=== PATIENT | female | born 1980 | race Caucasian/White ===

== ENCOUNTER 2023-07-14 16:57 | Emergency (ER) | payer OTHER, SELFPAY ==
[2023-07-14 17:01] VITALS: BP 157/86; PULSE 86; RESP 20; TEMP 36.5; O2SAT 96; BMI 35.0
--- NOTE | 2023-07-14 17:15 | ED.DENTAL1 ---
HPI - Dental/Oral General Chief complaint: Dental/Oral Stated complaint: TOOTHACHE Time Seen by Provider: 07/14/23 17:13 Source: patient Mode of arrival: walk-in Limitations: no limitations History of Present Illness HPI Narrative: patient is a 43-year-old female presents to the emergency department for a two day history of pain to tooth #15. Patient has generally poor dentition and multiple dental caries. She denies any specific drainage from the tooth, no difficulty swallowing or speaking. She has had no facial swelling, fevers, chills, nausea, vomiting. She is not concerned for . Related Data Previous Rx's Medication Instructions Recorded clindamycin HCl 150 mg capsule 300 mg PO Q6H 10 days #80 caps 07/14/23 ketorolac 10 mg tablet 10 mg PO TID PRN pain #10 tabs 07/14/23 Allergies Allergy/AdvReac Type Severity Reaction Status Date / Time Penicillins Allergy Hives Verified 07/14/23 17:00 Review of Systems ROS Constitutional Denies: fever or chills Ears, nose, mouth, and throat Denies: throat pain or nasal congestion Respiratory Denies: shortness of breath or cough Gastrointestinal Denies: nausea or vomiting Integumentary/Breast Denies: rash Neurological Reports: headache Exam Narrative Exam Narrative: Gen.: Awake, alert, in no distress Head: Normocephalic, atraumatic ENT: Moist mucous membranes; no redness or swelling under the tongue. Clear speech. Multiple dental caries with tooth #15 tender and eroded to the gumline. No visible dental abscess or drainage. No trismus or drooling. airway widely open and patent, uvula midline. No mandibular or maxillary swelling noted. Respiratory: No respiratory distress Extremities: Moves extremities equally Psych: Normal mood and affect Neuro: No focal neuro deficit Skin: Warm, dry, intact Constitutional Vital Signs, click to edit/add: Last Vital Signs Temp 97.7 F 07/14/23 17:01 Pulse 86 07/14/23 17:01 Resp 20 07/14/23 17:01 BP 157/86 H 07/14/23 17:01 Pulse Ox 96 07/14/23 17:01 Course Vital Signs Vital signs: Vital Signs Temperature 97.7 F 07/14/23 17:01 Pulse Rate 86 07/14/23 17:01 Respiratory Rate 20 07/14/23 17:01 Blood Pressure 157/86 H 07/14/23 17:01 Pulse Oximetry 96 07/14/23 17:01 Temperature 97.7 F 07/14/23 17:01 Pulse Rate 86 07/14/23 17:01 Respiratory Rate 20 07/14/23 17:01 Blood Pressure 157/86 H 07/14/23 17:01 Pulse Oximetry 96 07/14/23 17:01 MDM - Dental/Oral MDM Narrative Medical decision making narrative: patient treated with clindamycin as she is ALLERGIC to penicillin. Topical analgesia and NSAIDs provided for home. Follow-up with dentist and return to the Emergency Room if symptoms change or worsen. Medical Records Attestation: I reviewed the patient's medical records. Discharge Plan Discharge Chief Complaint: Dental/Oral Clinical Impression: Dental caries, Toothache Patient Disposition: Home, Self-Care Time of Disposition Decision: 17:13 Condition: Good Prescriptions / Home Meds: New clindamycin HCl 150 mg capsule 300 mg PO Q6H 10 Days Qty: 80 0RF ketorolac 10 mg tablet 10 mg PO TID PRN (Reason: pain) Qty: 10 0RF Instructions: Toothache (ED) Additional Instructions: Follow up with dental Stand Alone Forms: Portal Instructions Referrals: Cesar Gallegos MD [Primary Care Provider] - 1 week
[2023-07-14] MEDS: BENZOCAINE 30 ML, lidocaine HCL 15 ML MM (17:27)
== END 2023-07-14 17:31 | disposition home or self-care (01) ==
PROVIDERS: Emergency Provider Emergency Medicine; PCP Family Medicine
DX: K02.9 Dental caries, unspecified (principal); K08.89 Other specified disorders of teeth and supporting structures
CPT/HCPCS: 99283

== ENCOUNTER 2025-02-06 01:59 | Emergency (ER) | payer OTHER, SELFPAY ==
--- OUTSIDE RECORDS SUMMARY | 2025-02-04 10:45 | XMS_ITS ---
Author Organization [facility] [place] Address [address] [place] [address] Care Team Providers Care Retanner Name Role Phone Thang Gallegos Primary Care Provider [phone] Allergies No Known Allergies REASON FOR VISIT coughing up a lung per , started 2-3 days ago, coughing green up Medications Medication SIG (Take, Route, Frequency, Duration) Notes Start Date End Date Status Amoxicillin-Pot Clavulanate 875-125 MG 1 tablet Orally every 12 hrs for 10 days 02/04/2025 Active predniSONE 20 MG 3 tablets Orally Onc e a day for 5 days 02/04/2025 Active Benzonatate 200 MG 1 capsule Orally Thr ee times a day for 7 days 02/04/2025 Active Social History Tobacco Use: Social History Observation Description Date Details (start date - stop date) Current Smoker NA - NA Tobacco Control (Standard) Question Answer Notes Tobacco use: Current smoker AUDIT-C (Standard) Question Answer Notes Did you have a drink contain ing alcohol in the past year? Yes How often did you have a dri nk containing alcohol in the past year? Monthly or less (1 point) How many drinks did you have on a typical day when you were drinking in the past year? 1 or 2 drinks (0 point) How often did you have six o r more drinks on one occasion in the past year? Never (0 point) Points 1 Interpretation Negative Vital Signs Temperature 99.2 degrees Fahrenheit 02/05/20 25 Blood pressure systolic 124 mm Hg 02/05/20 25 Blood pressure diastolic 82 mm Hg 025 Height 61 in 02/04/2025 Weight 188.0 lbs 02/04/2025 BMI 35.52 kg/m2 02/04/2025 Encounters Encounter Location Date Provider Diagnosis [facility] [address] [place] [address] 02/04/2025 Thang Gallegos Acute bronchitis, unspecified organism J20.9 Assessments Encounter Date Diagnosis (ICD Code) Assessment Notes Treatment Notes Treatment Clinical Notes Section Notes 02/04/2025 Acute bronchitis, unspecified organism (ICD-10 - J20.9) Rest and drink more liquids, especially water. You may use a humidifier or vaporizer to help keep the drainage moist. Ukwi-wqf-owzvrwk Nasal Saline may help the stuffy and runny nose. Use Ibuprofen and or Tylenol as needed for fever, chills, body aches or pain. Children 5 years old should not be given aemo-kig-xgltbya cough and cold medications such as guaifenesin and dextromethorphan. If you're over age 5, you may try nfbe-mjn-qynrkxg cold medications such as guaifenesin and dextromethorphan, or multi-symptom cold reliever such as Dayquil to help reduce the symptoms. Antibiotics have been prescribed. You should take these until completed and follow the directions. Antibiotics can sometimes cause upset stomach, and in rare cases, serious allergic reactions or serious gastrointestinal problems. If you start having severe abdominal pain, severe vomiting, or bloody diarrhea, you should be reevaluated by your physician or urgent care immediately. Follow up with your Primary Care Provider or return to clinic if symptoms do not improve within 3-5 days. If you develop severe symptoms such as shortness of breath, repeated vomiting, coughing up blood, or chest pain you should go to the emergency room or call 911 Plan Of Treatment Medication Medication Name Sig Start Date Stop Date Notes Amoxicillin-Pot Clavulanate 875-125 MG 1 tablet Orally every 12 hrs for 10 days 02/04/2025 predniSONE 20 MG 3 tablets Orally Onc e a day for 5 days 02/04/2025 Benzonatate 200 MG 1 capsule Orally Thr ee times a day for 7 days 02/04/2025 Treatment Notes Assessment Notes Acute bronchitis, unspecified organism R est and drink more liquids, especially water. You may use a humidifier or vaporizer to help keep the drainage moist. Owdj-gie-yywcmvh Nasal Saline may help the stuffy and runny nose. Use Ibuprofen and or Tylenol as needed for fever, chills, body aches or pain. Children 5 years old should not be given myml-aus-nlvhsbe cough and cold medications such as guaifenesin and dextromethorphan. If you're over age 5, you may try yplc-cja-aatmzte cold medications such as guaifenesin and dextromethorphan, or multi-symptom cold reliever such as Dayquil to help reduce the symptoms. Antibiotics have been prescribed. You should take these until completed and follow the directions. Antibiotics can sometimes cause upset stomach, and in rare cases, serious allergic reactions or serious gastrointestinal problems. If you start having severe abdominal pain, severe vomiting, or bloody diarrhea, you should be reevaluated by your physician or urgent care immediately. Follow up with your Primary Care Provider or return to clinic if symptoms do not improve within 3-5 days. If you develop severe symptoms such as shortness of breath, repeated vomiting, coughing up blood, or chest pain you should go to the emergency room or call 911 Next Appt Details Follow Up: 3-5 days if not i mproving, Reason: Progress Notes * Sha WANGy DDOB:[birth year] (44 yo F)Acc No.[id number]:02/04/2025 UNLOCKED PROGRESS NOTE Progress Note Patient: Lila LEWIS Provider: Trinity Gallegos ([facility])MD :1980 A ge:44 Y S ex:Female Date:02/04/2025 Address:[address] [place], [place] [id number] Check In:02:38 PM ESTCheck O ut:03:42 PM EST Subjective: * Chief Complaints: * 1 . coughing up a lung per . 2. Started 2-3 days ago. 3. Coughing green up. * HPI: B ronchitis: The patient complains of symptoms of bronchitis. The symptoms have been present for 1-2 days. The symptoms are moderate. The patient has not been exposed to sick contacts. Symptomatic treatment has included OTC medication. Associated symptoms include nasal congestion, postnasal drainage, congested ears, cough, fever, chills, body aches. D epression Screening: PHQ-2 (2015 Edition) L ittle interest or pleasure in doing things??Not at all F eeling down, depressed, or hopeless? N ot at all T otal Score 0 * ROS: E NT: Ear pain d enies. H oarseness d enies. ? C ardiovascular: Edema d enies. P alpitations d enies. ? R espiratory: Comments S ee HPI for details. G astrointestinal: Abdominal pain d enies. D iarrhea d enies. N ausea d enies. S kin: Rash d enies. * Medical History: M edical History Verified. * Surgical History: D enies Past Surgical History. * Hospitalization/Major Diagno stic Procedure: D enies Past Hospitalization. * Family History: F ather: , diagnosed with Other malignant neoplasm of unspecified site, Unspecified essential hypertension. M other: alive, diagnosed with Unspecified polyarthropathy or polyarthritis, pelvic region and thigh. B rother(s): alive. S on(s): alive. D aughter(s): alive.?1 brother(s) . 1 son(s) , 1 daughter(s) . . * Social History: T obacco Use: T obacco Control (Standard) T obacco use: C urrent smoker D rug/Alcohol: A COLTON-C (Standard) D id you have a drink containing alcohol in the past year? Y es H ow often did you have a drink containing alcohol in the past year? M onthly or less (1 point) H ow many drinks did you have on a typical day when you were drinking in the past year? 1 or 2 drinks (0 point) H ow often did you have six or more drinks on one occasion in the past year? N ever (0 point) P oints 1 I nterpretation N egative * Medications: N one * Allergies: N .K.D.A. Objective: * Vitals: W t:188.0lbs, Ht: 61 in, BP:124/82mm Hg, Temp:99.2F, BMI:35.52Index, Ht-cm: 154.94 cm, Wt-k.28 kg. * Examination: G eneral Examination: GENERAL APPEARANCE: in no acute distress. EYES: EOMI. EARS: auditory canal clear, middle ear effusion noted.? NOSE: clear discharge, turbinates pale and swollen. ORAL CAVITY: mucosa moist. THROAT: no erythema, post-nasal drainage noted. NECK: neck supple, no thyromegaly. LYMPH NODES: n o cervical adenopathy. LUNGS: unlabored, clear to auscultation bilaterally. CARDIO: n o murmurs, regular rate and rhythm. ABDOMEN: bowel sounds present, no organomegaly . ? Assessment: * Assessment: 1. A cute bronchitis, unspecified organism - J20.9 (Primary) Plan: * Treatment: * Preventive Medicine: Screenings/Counseling: B [place] ACTION PLAN Above Normal BMI Follow-up D ietary management education, guidance, and counseling T OBAC[place] ACTION PLAN Patient counselled on the dangers of tobacco use and urged to quit. 0 02/04/2025 . * Follow Up: 3 -5 days if not improving * * Electronic signature of Thang Gallegos MD, [phone] on 02/06/2025 at 02:17 AM EDT Sign off status: Pending Visit Status: C HK (Check Out) * Provider: Trinity Gallegos ([facility])MD Date: 0 02/04/2025 Generated for Blanco gonzalez/Hussain/eTransmitting on: 0 02/06/2025 02:17 AM EDT History and Physical Notes * HPI (History of Present Illness) Category Sub-Category Detail Notes Category Not es Depression Screening PHQ-2 (2015 Edition) Little interest or pleasure in doing things?: Not at all Feeling down, depressed, or hopeless?: N ot at all Total Score: 0 Examination Category Sub-Category Detail Notes Category Not es General Examination GENERAL APPEARANCE: in no acute di stress EYES: EOMI EARS: auditory canal clear , middle ear effusion noted NOSE: clear discharge, tur binates pale and swollen THROAT: no erythema, post-na [place] drainage noted NECK: neck supple, no thyr omegaly CARDIO: no murmurs, regular rate and rhythm LUNGS: unlabored, clear to auscultation bilaterally ABDOMEN: bowel sounds present , no organomegaly LYMPH NODES: no cervical adenopat hy ORAL CAVITY: mucosa moist
[2025-02-06 02:04] VITALS: BP 126/94; PULSE 86; TEMP 36.6; O2SAT 97; BMI 36.7
--- OUTSIDE RECORDS SUMMARY | 2025-02-06 02:16 | XMS_ITS | CCD ---
Author Organization [facility] Care Team Providers Care Zoo Director Name Role Phone JOSE ACKERMAN Primary Care Unavailable DERRICK CASTRO Admitting Unavailable DERRICK CASTRO Attending Unavailable GABRIEL NEGRON Consulting Unavailable NELSON ESCALANTE Consulting Unavailable DERRICK CASTRO Consulting Unavailable Chelsy Barrios Unavailable Allergies Allergy Classification Reported Allergen(s) Allergy Type Date of Onset Reaction(s) Facility (1 source) Penicillins Drug allergy (disorder) 4 [facility] Rep[facility] (1 source) Penicillin G Drug Allergy pt doens't remember [facility] Other Medications Current Medications Medication Drug Class(es) Dates Sig (Normalized) Sig (Original) fluticasone propionate 0.05 mg/actuat metered dose nasal spray (1 source) Corticosteroid Start: 02-10-2022 take 2 spray(s) nasal route once daily Fluticasone Propionate 50 MCG/ACT 2 sprays Nasally Once a day for 14 day(s) Jan, Active predniSONE 20 mg oral tablet (1 source) Start: 02-10-2022 take 1 tablet by mouth every twelve hours predniSONE 20 MG 1 tablet Orally 2 times a day for 5 day(s) Jan, Active Problems Active Problems Problem Classification Problem Date Documented Da te Episodic/Chronic Nausea and vomiting (1 source) Vomiting, unspecified; Translations: [VOMITING UNSPECIFIED] Onset: 10-21-2018 Substance-related disorders (1 source) Nicotine dependence, cigarettes, uncomplicated; Translations: [NICOTINE DEPEND CIGARETTES UNCOMP] Onset: 10-21-2018 Chronic Past or Other Problems Problem Classification Problem Date Documented Da te Episodic/Chronic Abdominal pain (4 sources) Unspecified abdominal pain; Translations: [UNSPECIFIED ABDOMINAL PAIN] Onset: 10-19-2018 Episodic Other gastrointestinal disorders (1 source) Diarrhea, unspecified; Translations: [DIARRHEA UNSPECIFIED] Onset: 10-21-2018 Episodic Other upper respiratory infections (1 source) Acute sinusitis, unspecified Onset: 02-10-2022 Resolved: 02-10-2022 Episodic Unclassified (1 source) Cough R05.9 Onset: 02-10-2022 Resolved: 02-10-2022 Results Test Name Value Interpretation Reference Range Facility COVID + FLU Quick Testingon 02-10-2022 SARS-CoV-2 (COVID-19) RNA ADEN+probe Ql (Unsp spec) Negative [facility] [employer] Other COVID + FLU Quick Testing Negative [facility] [employer] Other CBC AUTO DIFFon 10-19-2018 Basophils (Bld) [#/Vol] 0.0 103/ul Normal 0.0-0.1 [facility] Comment on above: Performed By: #### C BC #### [facility] [address] [place], [place] [id number] Neal Trixie Basophils/100 WBC (Bld) 0.3 % Normal 0.2-2.0 [facility] Comment on above: Performed By: #### C BC #### [facility] [address] [place], [place] [id number] Neal Trixie Eosinophils (Bld) [#/Vol] 0.0 103/ul Normal 0.0-0.7 [facility] Comment on above: Performed By: #### C BC #### [facility] [address] [place], [place] [address] Neal Trixie Eosinophils/100 WBC (Bld) 0.2 % Critically low 0.9-7.0 [facility] Comment on above: Performed By: #### C BC #### [facility] [address] [place], [place] [id number] Neal Trixie Erythrocyte distribution width (RBC) [Ratio] 12.8 % Normal 11.0-15.0 [facility] Comment on above: Performed By: #### C BC #### [facility] [address] [place], [place] [id number] Enal Trixie Hematocrit (Bld) [Volume fraction] 50.6 % Critically high 36.0-48.0 [facility] Comment on above: Performed By: #### C BC #### [facility] [address] [place], [place] [id number] Neal Marcum Hemoglobin (Bld) [Mass/Vol] 17.2 g/dL Critically high 12.0-16.0 [facility] Comment on above: Performed By: #### C BC #### [facility] [address] [place] [address] Nealtere Marcum IG # 0.03 10e3/ul Normal 0.00-0.03 [facility] Comment on above: Performed By: #### C BC #### [facility] [address] [place] [address] Neal Marcum IG % 0.3 % Normal 0.0-0.5 [facility] Comment on above: Performed By: #### C BC #### [facility] [address] [place] [address] Neal Marcum Lymphocytes (Bld) [#/Vol] 0.8 103/ul Critically low 1.2-3.8 [facility] Comment on above: Performed By: #### C BC #### [facility] [address] [place] [address] Neal Marcum Lymphocytes/100 WBC (Bld) 7.2 % Critically low 20.5-60.0 [facility] Comment on above: Performed By: #### C BC #### [facility] [address] [place] [address] Neal Marcum MANUAL DIFF REQ NO Normal [facility] Comment on above: Performed By: #### C BC #### [facility] [address] [place], [place] [id number] Neal Marcum MCH (RBC) [Entitic mass] 30.8 pg Normal 26.7-34.0 [facility] Comment on above: Performed By: #### C BC #### [facility] [address] [place] [address] Neal Marcum MCHC (RBC) [Mass/Vol] 34.0 g/dL Normal 29.9-35.2 [facility] Comment on above: Performed By: #### C BC #### [facility] [address] [place], [place] [address] Neal Trixie MCV (RBC) [Entitic vol] 90.5 fL Normal 81.0-99.0 [facility] Comment on above: Performed By: #### C BC #### [facility] [address] [place], [place] [address] Neal Trixie Monocytes (Bld) [#/Vol] 0.8 103/ul Normal 0.3-0.8 [facility] Comment on above: Performed By: #### C BC #### [facility] [address] [place], [place] [address] Neal Trixie Monocytes/100 WBC (Bld) 6.8 % Normal 1.7-12.0 [facility] Comment on above: Performed By: #### C BC #### [facility] [address] [place], [place] [address] Neal Trixie Neutrophils (Bld) [#/Vol] 9.9 103/ul Critically high 1.4-6.5 [facility] Comment on above: Performed By: #### C BC #### [facility] [address] [place], [place] [address] Neal Trixie Neutrophils/100 WBC (Bld) 85.2 % Critically high 43.0-75.0 [facility] Comment on above: Performed By: #### C BC #### [facility] [address] [place], [place] [address] Neal Trixie Platelet mean volume (Bld) [Entitic vol] 10.3 fL Normal 9.5-13.5 [facility] Comment on above: Performed By: #### C BC #### [facility] [address] [place], [place] [address] Neal Trixie Platelets (Bld) [#/Vol] 205 103/ul Normal 150-450 [facility] Comment on above: Performed By: #### C BC #### [facility] [address] [place], [place] [address] Neal Trixie RBC (Bld) [#/Vol] 5.59 106/ul Critically high 4.20-5.40 [facility] Comment on above: Performed By: #### C BC #### [facility] [address] [place], [place] [address] Neal Marcum WBC (Bld) [#/Vol] 11.7 103/ul Critically high 4.0-11.0 [facility] Comment on above: Performed By: #### C BC #### [facility] [address] [place], [place] [address] ABD/PELVIS W CONon 2018 CT ABD/PELVIS W CON [address] [place] [address] Patient: JUAN CARLOS WANG Exam Date: 10/19/2018 : 1980 Gender:F Ordering : PAMELLA CAN Admission #: [id number] Family : DERRICK VanceShona GLORIA . Order #: [id number] CLICK HERE TO VIEW EXAM RADIOLOGY REPORT PROCEDURE: CT ABDOMEN AND PELVIS WITH CONTRAST COMPARISON: None. INDICATIONS: Acute right lower quadrant pain, diarrhea TECHNIQUE: CT images were created with IV contrast. Axial, Coronal, and Sagittal images. DOSE: 1051 mGycm; 100cc Omnipaque 300 FINDINGS: LUNG BASES: No visible pulmonary or pleural disease. LIVER: No enlargement, atrophy, abnormal density, or significant focal lesion. BILIARY: No visible dilatation or calcification. PANCREAS: No lesion, fluid collection, ductal dilatation, or atrophy. SPLEEN: No enlargement or focal lesion. ADRENALS: No mass or enlargement. KIDNEYS: No mass, obstruction, or calcification. BOWEL/MESENTERY: Mild circumferential wall thickening of the distal ileum, approximately 30 cm, with mild mesentery edema. No obstruction. Trace amount of free fluid within the pelvic cul de sac. Short segment of small bowel-small bowel intussusception within the left upper quadrant; typically transitory. Unremarkable colon. Normal appendix. AORTA/VASCULAR: No aneurysm or dissection. RETROPERITONEUM: No mass or adenopathy. LYMPH NODES: No adenopathy. URINARY BLADDER: No visible focal wall thickening, lesion, or calculus. PELVIC ORGANS: No visible mass. Pelvic organs appropriate for patient age. Bilateral fallopian tube occlusive devices. ABDOMINAL WALL: No mass or hernia. BONES: 11 mm anterior listhesis of L5 on S1 due to bilateral pars interarticularis defects. L5-S1 marked disc space narrowing. OTHER: Negative. CONCLUSION: 1. Abnormal wall thickening of the distal small bowel suggestive of inflammatory bowel disease or enteritis. No obstruction. Preliminary findings were provided to the radiology department at 7:07 p.m. Dictated by: Gabriel Negron M.D. on 10/19/2018 at 20:48 Approved by: Gabriel Negron M.D. on 10/19/2018 at 20:57 Normal [facility] URINE PROFILEon 9 Bilirubin [Mass/Vol] Negative Normal NEGATIVE [facility] Comment on above: Performed By: #### E RUR #### [facility] [address] [place] [address] Neal Trixie BLOOD Negative Normal NEGATIVE [facility] Comment on above: Performed By: #### E RUR #### [facility] [address] [place] [address] Neal Trixie Clarity (U) CLEAR Normal [facility] Comment on above: Performed By: #### E RUR #### [facility] [address] [place] [address] Neal Trixie Color (U) YELLOW Normal YELLOW [facility] Comment on above: Performed By: #### E RUR #### [facility] [address] [place] [address] Neal Trixie ERUAHD A micrscopic examination will be performed if indicated. Normal [facility] Comment on above: Performed By: #### E RUR #### [facility] [address] [place] [address] Neal Trixie Glucose [Mass/Vol] Negative Normal NEGATIVE [facility] Comment on above: Performed By: #### E RUR #### [facility] [address] [place] [address] Neal Trixie Ketones Ql (U) 15 mg/dl Normal NEGATIVE [facility] Comment on above: Performed By: #### E RUR #### [facility] [address] [place] [address] Neal Marcum Nitrite Ql (U) Negative Normal NEGATIVE [facility] Comment on above: Performed By: #### E RUR #### [facility] [address] [place], [place] [address] Neal Marcum pH (Bld) 5.5 Normal 5-9 [facility] Comment on above: Performed By: #### E RUR #### [facility] [address] [place], [place] [address] Neal Marcum Protein (U) [Mass/Vol] TRACE Normal [facility] Comment on above: Performed By: #### E RUR #### [facility] [address] [place] [address] Neal Marcum SPEC GRAVITY >=1.030 Normal 1.005-<=1.025 [facility] Comment on above: Performed By: #### E RUR #### [facility] [address] [place] [address] Neal Marcum UR MICRO IND NOT INDICATED Normal [facility] Comment on above: Performed By: #### E RUR #### [facility] [address] [place], [place] [address] Neal Marcum Urobilinogen Qn (U) 0.2 EU/dl Normal [facility] Comment on above: Performed By: #### E RUR #### [facility] [address] [place], [place] [address] Neal Marcum WBC (Bld) [#/Vol] Negative Normal NEGATIVE [facility] Comment on above: Performed By: #### E RUR #### [facility] [address] [place], [place] [address] Neal Marcum LACTATE/LACTIC ACIDon 2018 Lactate [Moles/Vol] 1.0 mmol/L Normal 0.7-2.1 [facility] Comment on above: Performed By: #### L ACT #### [facility] [address] [place] [address] Neal Marcum LIPASEon 10-19-2018 Lipase [Catalytic activity/Vol] 73.0 U/L Normal 23.0-300.0 [facility] Comment on above: Performed By: #### L IPA, CMP #### [facility] [address] [place], [place] [address] Neal Trixie PREG HCG QUALon 10-19-2018 , QUAL Negative Normal NEGATIVE [facility] Comment on above: Performed By: #### P REG #### [facility] [address] [place] [id number] Neal Marcum PROF 14(COMP METB)on 019 Albumin [Mass/Vol] 4.0 g/dL Normal 3.5-5.0 [facility] Comment on above: Performed By: #### L IPA, CMP #### [facility] [address] [place], [place] [address] Nealtere Marcum Albumin/Globulin [Mass ratio] 1.0 {ratio} Normal [facility] Comment on above: Performed By: #### L IPA, CMP #### [facility] [address] [place], [place] [address] Neal Trixie ALP [Catalytic activity/Vol] 91 U/L Normal 38-126 [facility] Comment on above: Performed By: #### L IPA, CMP #### [facility] [address] [place], [place] [address] Neal Trixie ALT [Catalytic activity/Vol] 14 U/L Normal 9-52 [facility] Comment on above: Performed By: #### L IPA, CMP #### [facility] [address] [place], [place] [address] Neal Trixie Anion gap [Moles/Vol] 16.9 mmol/L Normal [facility] Comment on above: Performed By: #### L IPA, CMP #### [facility] [address] [place], [place] [address] Neal Trixie AST [Catalytic activity/Vol] 13 U/L Critically low 14-36 [facility] Comment on above: Performed By: #### L IPA, CMP #### [facility] [address] [place], [place] [address] Neal Trixie Bilirubin Ql (U) 0.4 mg/dL Normal 0.2-1.3 [facility] Comment on above: Performed By: #### L IPA, CMP #### [facility] [address] [place] [address] Neal Trixie Calcium [Mass/Vol] 9.2 mg/dL Normal 8.4-10.2 [facility] Comment on above: Performed By: #### L IPA, CMP #### [facility] [address] [place] [address] Neal Trixie Chloride [Moles/Vol] 100 mmol/L Normal 98-107 [facility] Comment on above: Performed By: #### L IPA, CMP #### [facility] [address] [place] [address] Neal Trixie CO2 [Moles/Vol] 21.9 mmol/L Critically low 22.0-30.0 [facility] Comment on above: Performed By: #### L IPA, CMP #### [facility] [address] [place] [address] Neal Trixie Creatinine [Mass/Vol] 0.90 mg/dL Normal 0.52-1.04 [facility] Comment on above: Performed By: #### L IPA, CMP #### [facility] [address] [place] [address] Neal Trixie EGFR-AF PERUVIAN >60 Normal >=60 [facility] Comment on above: Performed By: #### L IPA, CMP #### [facility] [address] [place] [address] Neal Trixie EGFR-NON AF PERUVIAN >60 Normal >=60 [facility] Comment on above: Performed By: #### L IPA, CMP #### [facility] [address] [place] [address] Neal Trixie Globulin (S) [Mass/Vol] 4.1 g/dL Normal [facility] Comment on above: Performed By: #### L IPA, CMP #### [facility] [address] [place] [address] Neal Trixie Glucose [Mass/Vol] 100 mg/dL Normal 74-106 [facility] Comment on above: Performed By: #### L IPA, CMP #### [facility] [address] [place], [place] [address] Neal Trixie Potassium [Moles/Vol] 3.8 mmol/L Normal 3.4-5.0 [facility] Comment on above: Performed By: #### L IPA, CMP #### [facility] [address] [place], [place] [address] Neal Trixie Protein [Mass/Vol] 8.1 g/dL Normal 6.1-8.2 [facility] Comment on above: Performed By: #### L IPA, CMP #### [facility] [address] [place], [place] [address] Neal Trixie Sodium [Moles/Vol] 135 mmol/L Critically low 137-145 [facility] Comment on above: Performed By: #### L IPA, CMP #### [facility] [address] [place], [place] [address] Neal Trixie Urea nitrogen [Mass/Vol] 7.0 mg/dL Normal 7.0-17.0 [facility] Comment on above: Performed By: #### L IPA, CMP #### [facility] [address] [place], [place] [address] Neal Trixie Urea nitrogen/Creatinin e [Mass ratio] 7.8 mg/mg Normal [facility] Comment on above: Performed By: #### L IPA, CMP #### [facility] [address] [place], [place] [address] Neal Trixie Vital Signs Date Time Vital Sign Value Performing Clinician Facility 02-10-2022 14:10-0400 Body height 157.48 cm Chelsy Barrios Other [facility] Other 02-10-2022 14:10-0400 Body mass index (BMI) [Ratio] 34.75 kg/m2 Chelsy Barrios Other [facility] Other 02-10-2022 14:10-0400 Body temperature 101 [degF] Chelsy Barrios Other [facility] Other 02-10-2022 14:100400 Body weight 86.18 kg Chelsy Barrios Other [facility] Other 02-10-2022 14:100400 SaO2% (BldA) [Mass fraction] 95 % Chelsy Barrios Other [facility] Other Encounters Encounter Date Encounter Type Care Provider Facility Start: 02-10-2022 (URG) Urgent Care Visit Chelsy Dallas [facility] Start: 02-10-2022 End: 02-10-2022 ambulatory Chelsy Barrios Other [facility] Other Start: 10-19-2018 End: 10-19-2018 Patient encounter procedure [facility] Facility: Payers Date Payer Category Payer Unknown [id number] 1958 Private Health Insurance [id number] Social History Date Type Detail Facility Sex Assigned At [facility] Other Evaluation note 02-10-2022 Note Date & Type Note Facility 02-10-2022 Evaluation note Encounter Date Diagnosis Assessment Notes Jan, Cough (ICD-10 - R05.9) Jan, Acute sinusitis, recurrence not specified, unspecified location (ICD-10 - J01.90) Drink plenty fluids, get plenty of rest. Take the prednisone as prescribed until gone. Use the Flonase inhaler as prescribed until your symptoms improve. Try to stop smoking. Follow-up with your family physician if no improvement in 2 to 3 days. [facility] Other Summary Purpose Family History No Family History Records Found Advance Directives No Advanced Directives Records Found Additional Source Comments INFORMATION SOURCE (unrecogn ized section and content) DATE CREATED AUTHOR 04/24/2019 [facility] REASON FOR VISIT (unrecogniz ed section and content) DUMONT EXPEDITION, COUGH, GREE N MUCOUS FOR RECORDS PERTAINING TO PATIENTS WHO ARE OR HAVE BEEN ENROLLED IN A CHEMICAL DEPENDENCY/SUBSTANCEABUSE PROGRAM, SOME INFORMATION MAY BE OMITTED. This clinical summary was aggregated from multiple sources. Caution should be exercised in using it in the provision of clinical care. This summary normalizes information from multiple sources, and as a consequence, information in this document may materially change the coding, format and clinical context of patient data. In addition, data may be omitted in some cases. CLINICAL DECISIONS SHOULD BE BASED ON THE PRIMARY CLINICAL RECORDS. [email or web address] [facility]. provides no warranty or guarantee of the accuracy or completeness of information in this document.
--- OUTSIDE RECORDS SUMMARY | 2025-02-06 02:17 | XMS_ITS | Patient Health Record ---
Author Organization [facility] [place] Address [address] [place] [address] Care Team Providers Care Mining Technician Name Role Phone Thang Gallegos Primary Care Provider [phone] Allergies No Known Allergies Reason For Referral No Information Medications Medication SIG (Take, Route, Frequency, Duration) [...] Negative Vital Signs Temperature 99.2 degrees Fahrenheit 02/04/2025 Blood pressure diastolic 82 mm Hg 02/04/2025 Height 61 in 02/04/2025 Blood pressure systolic 124 mm Hg 02/04/2025 Weight 188.0 lbs 02/04/2025 BMI 35.52 kg/m2 02/04/2025 Encounters Encounter Location Date Provider Diagnosis [facility] [address] [place] [address] 02/04/2025 Thang Gallegos Acute bronchitis, unspecified organism J20.9 Assessments Encounter Date Diagnosis (ICD Code) Assessment Notes Treatment Notes Treatment Clinical Notes Section Notes 02/04/2025 Acute bronchitis, unspecified organism (ICD-10 - J20.9) Rest and drink more liquids, especially water. You may use a humidifier or vaporizer to help keep the drainage moist. Awca-xmx-klhhzrp Nasal Saline may help the stuffy and runny nose. Use Ibuprofen and or Tylenol as needed for fever, chills, body aches or pain. Children 5 years old should not be given vslk-yqz-qpbbcpt cough and cold medications such as guaifenesin and dextromethorphan. If you're over age 5, you may try ecpn-bvn-mqvrnlw cold medications such as guaifenesin and dextromethorphan, [...] room or call 911 Plan Of Treatment No Information Insurance Providers Payer Name Payer Address Payer Phone Subscriber Number Group Number Insured Name Patient Relationship to Insured Coverage Start Date Coverage End Date [employer] [address] [address] [place] [id number] Lila Terrell Self - patient is the insured
== END 2025-02-06 03:02 | disposition left against medical advice (07) ==
PROVIDERS: Emergency Provider Internal Medicine; PCP Family Medicine
DX: Z53.21 Procedure and treatment not carried out due to patient leaving prior to being seen by health care provider (principal)
CPT/HCPCS: 99281